=== PATIENT | male | born 1945 | race Caucasian/White ===

== ENCOUNTER 2021-04-12 12:52 | Inpatient (IN) | payer MEDICARE ==
[~2021-04-12] VITALS: Ht 172.7 cm; Wt 107.9 kg
--- NOTE | 2021-04-12 14:05 | PHYS DOC ---
Past Medical History Past Medical History: A-Fib, CHF, Hypertension Additional Past Medical Histor: MYASTHENIA GRAVIS Past Surgical History: No Surgical History Smoking Status: Never Smoker Drug Use: None General Adult EDM: Chief Complaint: SHORTNESS OF BREATH HPI: HPI: Patient is a 75 year old male with past medical history of hypertension, CHF, A. fib, myasthenia gravis who presents with shortness of breath. Patient was seen at his primary care doctor, Dr. Dennis, who directed him to the ED for evaluation for pneumonia. Patient reports his symptoms began 4 days ago, where he noted runny nose, dry cough, body aches, fatigue. He reports his symptoms got worse the following days. Yesterday, he states he felt a little better, but made an appointment with Dr. Dennis "to be sure." Today, he notes his cough seems " deeper" and he has [id number] sputum occasionally and is significantly more short of breath. He reports associated intermittent fever, with highest temperature being 100.7 F. Patient denies sore throat, chest pain, palpitations, edema. Review of Systems: Review of Systems: Constitutional: Reports fever, generalized weakness Eyes: Denies change in visual acuity, visual field deficits or discharge HENT: Denies ear pain or sore throat; reports nasal congestion Respiratory: Reports productive cough and shortness of breath Cardiovascular: Denies chest pain, palpitations or edema GI: Denies abdominal pain, nausea, vomiting, bloody stools or diarrhea : Denies dysuria or hematuria Musculoskeletal: Denies back pain or joint pain Integument: Denies rash or other skin lesion Neurologic: Denies headache, focal weakness or sensory changes Heart Score: C/O Chest Pain: No Current Medications: Current Medications Medications (Trade) Dose Ordered Sig/Jone Route PRN Reason Start Time Stop Time Status Last Admin Dose Admin Albuterol/ Ipratropium (Duoneb) 3 ml 1X ONCE NEB 04/12/21 14:30 04/12/21 14:31 DC 04/12/21 14:13 Albuterol/ Ipratropium (Duoneb) 3 ml 1X ONCE NEB 04/12/21 15:00 04/12/21 15:01 DC 04/12/21 15:36 Allergies: Allergies: Allergies Coded Allergies Type Severity Reaction Last Updated Verified gentamicin Adverse Reaction Severe Anaphylaxis 01/24/21 Yes Physical Exam: PE: Constitutional: Well developed, well nourished, patient appears short of breath and can speak only short sentences, non-toxic appearance. HENT: Normocephalic, atraumatic, bilateral external ears normal, oropharynx moist, no oral exudates, nose normal. Eyes: EOMI, conjunctiva normal, no discharge. Neck: Normal range of motion, no tenderness, supple, no stridor. Cardiovascular: Heart irregularly irregular rhythm, regular rate, no obvious murmur. Lungs & Thorax: Audible wheezing on exam, equal thoracic expansion, increased respiratory rate. S/p one duoneb - expiratory wheezing in all lung escudero, decreased breath sounds left base. Skin: Warm, dry, no erythema, no rash. Extremities: No tenderness, no cyanosis, no clubbing, ROM intact, no edema. Neurologic: Alert and oriented x4, no focal deficits noted. Current Patient Data: Labs: Laboratory Tests Test 04/12/21 15:00 04/12/21 15:02 Influenza Type A Antigen Positive (NEGATIVE) Influenza Type B Antigen Negative (NEGATIVE) White Blood Count 6.8 x10^3/uL (4.0-11.0) Red Blood Count 4.08 x10^6/uL (4.30-5.70) Hemoglobin 10.9 g/dL (13.0-17.5) Hematocrit 34.7 % (39.0-53.0) Mean Corpuscular Volume 85 fL (79-100) Mean Corpuscular Hemoglobin 27 pg (25-35) Mean Corpuscular Hemoglobin Concent 32 g/dL (31-37) Red Cell Distribution Width 16.3 % (11.5-14.5) Platelet Count 175 x10^3/uL (140-400) Neutrophils (%) (Auto) 82 % (31-73) Lymphocytes (%) (Auto) 6 % (24-48) Monocytes (%) (Auto) 11 % (0-9) Eosinophils (%) (Auto) 0 % (0-3) Basophils (%) (Auto) 1 % (0-3) Neutrophils # (Auto) 5.6 x10^3/uL (1.8-7.7) Lymphocytes # (Auto) 0.4 x10^3/uL (1.0-4.8) Monocytes # (Auto) 0.8 x10^3/uL (0.0-1.1) Eosinophils # (Auto) 0.0 x10^3/uL (0.0-0.7) Basophils # (Auto) 0.0 x10^3/uL (0.0-0.2) Sodium Level 142 mmol/L (136-145) Potassium Level 4.0 mmol/L (3.5-5.1) Chloride Level 104 mmol/L (98-107) Carbon Dioxide Level 27 mmol/L (21-32) Anion Gap 11 (6-14) Blood Urea Nitrogen 18 mg/dL (8-26) Creatinine 1.0 mg/dL (0.7-1.3) Estimated GFR (Cockcroft-Gault) 72.5 BUN/Creatinine Ratio 18 (6-20) Glucose Level 88 mg/dL (70-99) Calcium Level 8.3 mg/dL (8.5-10.1) Magnesium Level 2.4 mg/dL (1.8-2.4) Total Bilirubin 0.7 mg/dL (0.2-1.0) Aspartate Amino Transf (AST/SGOT) 12 U/L (15-37) Alanine Aminotransferase (ALT/SGPT) 20 U/L (16-63) Alkaline Phosphatase 75 U/L (46-116) Troponin I High Sensitivity 12 ng/L (4-75) HP-Nao-U-Type Natriuretic Peptide 1812 pg/mL (0-449) Total Protein 5.9 g/dL (6.4-8.2) Albumin 3.5 g/dL (3.4-5.0) Albumin/Globulin Ratio 1.5 (1.0-1.7) Vital Signs: Vital Signs Date Time Temp Pulse Resp B/P (MAP) Pulse Ox O2 Delivery O2 Flow Rate FiO2 04/12/21 15:36 96 Room Air 04/12/21 14:13 96 Room Air 04/12/21 12:52 98.5 89 28 112/66 (81) 92 Room Air 98.5 EKG: EKG: EKG Interpreted by Dr. Lemon at 1334: Irregularly irregular rhythm with rate 72 bpm. QT 382 ms/QTc 420 ms. No STEMI. Radiology/Procedures: Radiology/Procedures: PROCEDURE: CHEST AP ONLY XR CHEST 1V History: Shortness of breath Comparison: 01/24/2021 Technique: Portable AP radiograph of the chest. Findings: Enlarged cardiac silhouette. Mild left lower lobe airspace opacity. No pleural effusion or pneumothorax. The pulmonary vasculature is within normal limits. Degenerative changes of the shoulders. Healed right rib fractures. Calcification of the aortic arch. Soft tissues are unremarkable. Impression: 1. Left lower lobe opacities may represent infiltrate or atelectasis. 2. Cardiomegaly. Electronically signed by: Eulogio Sims MD (04/12/2021 2:27 PM) [id number] Course & Med Decision Making: Course & Med Decision Making Pertinent Labs and Imaging studies reviewed. (See chart for details) Patient is a 75-year-old male who presents from his primary care doctor's office today for shortness of breath and concern for pneumonia. Patient has an approximately 1 week history of viral illness symptoms followed by increasing shortness of breath and productive cough today. Work-up today will include labs, chest x-ray, EKG, urinalysis. Patient's wheezing is much improved after 2 DuoNeb's. Patient is influenza A positive with a left lower lobe pneumonia. Due to his dyspnea at rest not well controlled at home, he will be admitted for inpatient treatment. Patient made aware of findings and is agreeable to inpatient stay. Dr. Dennis gladly accepts her patient for admission. Rocephin and azithromycin initiated. Luis F Disclaimer: Luis F Disclaimer: This electronic medical record was generated, in whole or in part, using a voice recognition dictation system. Departure Departure Impression: Primary Impression: Influenza A with pneumonia Additional Impressions: Left lower lobe pneumonia Qualified Codes: J18.9 - Pneumonia, unspecified organism Shortness of breath at rest Disposition: ADMITTED INPATIENT Admitting Physician: Catie Dennis Condition: GUARDED Referrals: CATIE DENNIS MD (PCP) JOSÉ MIGUEL BERNSTEIN Apr 12, 2021 14:05
--- NOTE | 2021-04-12 14:29 | RAD ---
XR CHEST 1V History: Shortness of breath Comparison: 01/24/2021 Technique: Portable AP radiograph of the chest. Findings: Enlarged cardiac silhouette. Mild left lower lobe airspace opacity. No pleural effusion or pneumothor ax. The pulmonary vasculature is within normal limits. Degenerative changes of the shoulders. Healed right rib fractures. Calcification of the aortic arch. Soft tissues are unremarkable. Impression: 1. Left lower lobe opacities may represent infiltrate or atelectasis. 2. Cardiomegaly. Electronically signed by: Eulogio Sims MD (04/12/2021 2:27 PM) [id number]
[2021-04-12] MEDS ORDERED: IPRATRPIUM/ALBUTEROL 0.5/2.5MG 3 ML NEBU. NEB ONE ×2 (14:30→15:00)
[2021-04-12 15:25] LABS: BASO % 1 % (0-3); EOS % 0 % (0-3); HEMATOCRIT 34.7 % (39.0-53.0); HEMOGLOBIN 10.9 g/dL (13.0-17.5); LYMPH # 0.4 x10^3/uL (1.0-4.8); LYMPH % 6 % (24-48); MEAN CORPUSCULAR HEMOGLOBIN 27 pg (25-35); MEAN CORPUSCULAR HGB CONC 32 g/dL (31-37); MEAN CORPUSCULAR VOLUME 85 fL (79-100); MONO # 0.8 x10^3/uL (0.0-1.1); MONO % 11 % (0-9); NEUT # 5.6 x10^3/uL (1.8-7.7); NEUT % 82 % (31-73); PLATELET COUNT 175 x10^3/uL (140-400); RED BLOOD COUNT 4.08 x10^6/uL (4.30-5.70); RED CELL DISTRIBUTION WIDTH 16.3 % (11.5-14.5); WHITE BLOOD COUNT 6.8 x10^3/uL (4.0-11.0)
[2021-04-12 15:38] LABS: INFLUENZA B PATIENT NEGATIVE (NEGATIVE)
[2021-04-12 15:42] LABS: INFLUENZA A PATIENT POSITIVE (NEGATIVE)
[2021-04-12 15:44] LABS: CALCIUM 8.3 mg/dL (8.5-10.1); GFR 72.5
[2021-04-12 15:48] LABS: ALBUMIN 3.5 g/dL (3.4-5.0); ALBUMIN/GLOBULIN RATIO 1.5 (1.0-1.7); MAGNESIUM 2.4 mg/dL (1.8-2.4); TOTAL BILIRUBIN 0.7 mg/dL (0.2-1.0); TOTAL PROTEIN 5.9 g/dL (6.4-8.2)
[2021-04-12] MEDS ORDERED: AZITHROMYCIN 250 MG TABLET. PO ONE (16:00)
[2021-04-12] MEDS ORDERED: cefTRIAXone IV Push 1 GM VIAL. IVP ONE (16:00)
[2021-04-12 19:00] VITALS: BP 117/74
[2021-04-12] MEDS: OSELTAMIVIR 75 MG CAPSULE PO SCH (20:12)
[2021-04-12 23:11] VITALS: BP 158/93
[2021-04-13] MEDS ORDERED: PYRI60SY PO (00:16)
[2021-04-13] MEDS ORDERED: WARF-31 PO (00:16)
[2021-04-13] MEDS ORDERED: LOSA-73 PO (00:16)
[2021-04-13] MEDS ORDERED: AZAT50TA20 PO ×2 (00:16)
[2021-04-13] MEDS ORDERED: WARF7.5T45 PO (00:16)
[2021-04-13] MEDS ORDERED: AMLO-186 PO (00:16)
[2021-04-13] MEDS ORDERED: CITA10TA8 PO (00:16)
[2021-04-13] MEDS ORDERED: FURO-68 PO (00:16)
[2021-04-13] MEDS ORDERED: CARV25TA PO (00:16)
[2021-04-13] MEDS ORDERED: PRED-220 PO (00:16)
[2021-04-13] MEDS ORDERED: POTA20TA4 PO (00:16)
[2021-04-13 03:00] VITALS: BP 141/81
[2021-04-13 07:00] VITALS: BP 150/99
[2021-04-13] MEDS ORDERED: PYRIDOSTIGMINE BROMIDE 60 MG TABLET PO SCH (09:00)
[2021-04-13] MEDS ORDERED: FUROSEMIDE 40 MG TABLET. PO SCH (09:00)
[2021-04-13] MEDS ORDERED: predniSONE 10 MG TABLET PO SCH (09:00)
[2021-04-13] MEDS ORDERED: CARVEDILOL 12.5 MG TABLET. PO SCH (09:00)
[2021-04-13] MEDS ORDERED: azaTHIOprine 50 MG TABLET PO SCH (09:00)
[2021-04-13] MEDS ORDERED: POTASSIUM CHLORIDE 20 MEQ TABLET.ER. PO SCH (09:00)
[2021-04-13] MEDS ORDERED: LOSARTAN POTASSIUM 50 MG TABLET. PO SCH (09:00)
[2021-04-13] MEDS ORDERED: AZIT500T4 PO (09:11)
[2021-04-13] MEDS ORDERED: CEFD300C PO (09:11)
[2021-04-13] MEDS ORDERED: OSEL75CA PO (09:11)
[2021-04-13] MEDS: OSELTAMIVIR 75 MG CAPSULE PO SCH (09:19)
[2021-04-13 09:25] VITALS: BP 150/99
[2021-04-13 10:13] LABS: PROTHROMBIN TIME PATIENT 19.8 SEC (11.7-14.0)
--- NOTE | 2021-04-13 12:06 | NUR ---
pt was discharged home with self care, three scripts were electronically sent to his pharm and the pt was picked up by his daughter at the main entrance at 1135. pt was in good spirits as he was wheeled down. Kamar Clemens RN
--- NOTE | 2021-04-13 12:38 | DS ---
DATE OF DISCHARGE: 04/13/2021 PRIMARY DIAGNOSIS: Influenza A pneumonia. ADDITIONAL DIAGNOSES: Bronchospasm, atrial fibrillation, congestive heart failure, hypertension, myasthenia gravis. CHIEF COMPLAINT AND HISTORY OF PRESENT ILLNESS: This 75-year-old male presented to the Emergency Room just to be sure he was okay with possible pneumonia. He was found to have a left lower lobe atelectasis versus infiltrate. Essentially normal labs other than influenza A positive testing. He was admitted with IV antibiotics and Tamiflu. SUMMARY OF STAY: By the following morning, the patient felt much improved and was actually feeling improving daily. Coming to the hospital with symptoms starting on Thursday, it was felt that he could be managed as an outpatient. With worst case scenario to come back if he got worse. He was agreeable to this and discharge was accomplished. DISPOSITION: The patient is discharged to home. Please see orders regarding diet, medication, activity, etc. He will follow up with Dr. Abad in the next week. PEDRO DR: Kevin TID: [id number] CC: CATIE ABAD MD
--- NOTE | 2021-04-13 12:38 | HP ---
DATE OF SERVICE: 04/13/2021 ADMIT DATE: 04/12/2021 CHIEF COMPLAINT AND HISTORY OF PRESENT ILLNESS: This 75-year-old male patient of Dr. Abad, who came to the Emergency Room with symptoms beginning on the Thursday prior. He had fevers, chills, aches, cough, runny nose, sore throat with relatively rapid onset. He had made an appointment apparently on the day of admission and felt to possibly have pneumonia, presented to the Emergency Room with a recent left lower lobe infiltrate versus atelectasis and admitted with dose of Rocephin and Zithromax. PAST MEDICAL HISTORY: Remarkable for AFib, congestive heart failure, hypertension, myasthenia gravis. PAST SURGICAL HISTORY: Unremarkable. MEDICATIONS: Brought with the patient, listed on the computer, have been addressed. ALLERGIES: HE IS ALLERGIC TO GENTAMICIN. SOCIAL HISTORY: He is a lifetime nonsmoker, does not drink or use drugs. FAMILY HISTORY: Noncontributory. REVIEW OF SYSTEMS: As mentioned above. He does admit that he feels much better today than he did yesterday and felt much better yesterday than he had the day before and it sounds like his symptomatology from type A influenza found in the ER is actually on the downhill slide. PHYSICAL EXAMINATION: GENERAL: He is a well-developed, well-nourished male, in no acute distress. VITAL SIGNS: Stable. He is afebrile. O2 sats are good on room air. HEAD, EYES, EARS, NOSE AND THROAT: Unremarkable. NECK: Supple without adenopathy or thyromegaly. CHEST: Reveals very mild bilateral wheezing, left worse than right. HEART: Irregularly irregular with normal rate. ABDOMEN: Soft, nontender without hepatosplenomegaly or mass. EXTREMITIES: Without cyanosis, clubbing or edema. NEUROLOGIC: He is intact. LABORATORY DATA: Initial evaluation again shows the atelectasis versus infiltrate, left lower lobe. Laboratory shows an INR of 1.7. CBC that is essentially unremarkable. CMP that is likewise unremarkable. BNP was 1812 and again is influenza A positive. IMPRESSION: Influenza A infection with pneumonia, clinically improving with the patient feeling like he would prefer to be at home and I see no reason why not with the symptoms improving on a daily basis. PLAN: Discharged to home. We will finish a 5-day course of Tamiflu and for safety purposes, we will do 7-day courses of Omnicef as well as Zithromax. STEFFANIE DR: Kevin TID: [id number] CC: CATIE ABAD MD
[2021-04-13] MEDS ORDERED: WARFARIN 7.5 MG TABLET. PO SCH (16:00)
--- NOTE | 2021-04-13 18:57 | EKG ---
[facility] [address] [place] [address] Test Date: 2021-04-12 Test Time: 13:34:14 Pat Name: NIRU JIMÉNEZ Department: Room: [facility] Gender: M President[employer]: : 1945 Requested By: JOSÉ MIGUEL BERNSTEIN Order Number: [id number] Reading MD: Santi Garcia MD Measurements Intervals [place] Rate: 72 P: CT: QRS: 75 QRSD: 92 T: 48 QT: 382 QTc: 420 Interpretive Statements IRREGULAR RHYTHM, NO P-WAVE FOUND INCOMPLETE RIGHT BUNDLE BRANCH BLOCK Electronically Signed On 04-15-2021 11:04:39 [employer] by Santi Garcia MD
[2021-04-13] MEDS ORDERED: CITALOPRAM 10 MG TABLET. PO SCH (21:00)
[2021-04-15] MEDS ORDERED: WARFARIN 5 MG TABLET. PO SCH (16:00)
== END 2021-04-13 11:35 | disposition home or self-care (01) | DRG 194 ==
LOC: ER 12:52 → 5 NORTH 15:15
PROVIDERS: ADMIT Family Medicine; ATTEND Family Medicine
DX: J10.00 Influenza due to other identified influenza virus with unspecified type of pneumonia (principal); J98.11 Atelectasis; I11.0 Hypertensive heart disease with heart failure; I48.91 Unspecified atrial fibrillation; I50.9 Heart failure, unspecified; J10.1 Influenza due to other identified influenza virus with other respiratory manifestations; G70.00 Myasthenia gravis without (acute) exacerbation; Z88.8 Allergy status to other drugs, medicaments and biological substances; Z20.822 Contact with and (suspected) exposure to COVID-19
CPT/HCPCS: 36415; 71045; 80053; 83735; 83880; 84484; 85025; 85610; 87804; 93005; 94640; 96374; J0696; J7500; J7512; U0003; 99285-25; G0378